=== PATIENT | male | born 1945 | race Caucasian/White ===

== ENCOUNTER → 2018-10-21 | Outpatient (CLI) | payer MEDICARE, OTHER ==
[~2018-10-21] MED LIST: NOVOLOG 70100 UNITS/; SERTRALINE; Z.0.AMLODIPINE BESY1; Z.0.CITALOPRAM HBR40; Z.0.GEMFIBROZIL600 M; Z.0.METFORMIN HCL500; Z.0.PLAVIX75 MG; Z.0.PRAVASTATIN SOD4; Z.0.TRAZODONE HCL100; Z.1.LEVOTHYROXINE100; [UNRECOGNIZED DRUG - OTHER]
--- NOTE | 2018-10-21 14:10 | Diagnostic Imaging Report ---
History:Vertigo, hydrocephalus Comparison studies:None Technique: Axial images were obtained from the skull base to the vertex. Coronal and sagittal images reconstructed from the axial data. Intravenous contrast: None Dose modulation, iterative reconstruction, and/or weight based adjustment of the mA/kV was utilized to reduce the radiation dose to as low as reasonably achievable. Findings: Scalp/skull: Right parietal ventricular catheter with the tip at the right frontal horn abutting the septum. Extra-axial spaces: No masses. No fluid collections. Brain sulci: Mildly prominent. Ventricles: Mild compensatory dilatation. No hydrocephalus. Parenchyma: Few hypodensities in the supratentorial white matter are small vessel ischemic changes. No masses, hemorrhage, acute or chronic cortical vascular insults. Sellar/suprasellar region: No abnormalities. Craniocervical junction: Patent foramen magnum. No Chiari one malformation. Incidental findings: Atherosclerotic calcifications in the carotid siphons . Bilateral cataract surgery changes Impression: No acute abnormalities. Chronic findings: 1. Mild generalized volume loss. 2. Mild supratentorial white matter small vessel ischemic changes. 3. Right parietal ventricular catheter without hydrocephalus. Signed by: DR Donal Payton M.D. on 10/21/2018 2:06 PM
== END ==
LOC: CT 13:21
PROVIDERS: ATTEND Family Medicine
DX: G91.9 Hydrocephalus, unspecified (principal); R42 Dizziness and giddiness
CPT/HCPCS: 70450